=== PATIENT | male | born 1970 | race African-American/Black ===

== ENCOUNTER 2021-07-02 05:13 | Emergency (ER) | payer OTHER ==
--- OUTSIDE RECORDS SUMMARY | 2021-07-02 05:16 | XMS REPORT | Continuity of Care Document ---
:1970 Author Organization [facility] t Address [address] [place] [address] Care Team Providers Name Role Phone RODRIGO Primary Care Physician Unavailable RADIOLOGY Attending Clinician Unavailable Radiology Attending Clinician Unavailable Doctor Unassigned, Name Attending Clinician Unavailable DAMIAN, Jayro Attending Clinician Unavailable Therapy, Covid Infusion Attending Clinician Unavailable Damian MARTINEZ, Jayro Attending Clinician CAROLINA SMITH Admitting Clinician Unavailable Payers Payer Name Policy Type Policy Number Effective Date Expiration Date S kayden SPEAR II [id number] 2020 00:00:00 Problems Condition Condition Condition Status Onset Resolution Last Treating Co mments Source Name Details Category Date Date Treatment Clinician Date Peripheral Problem Active 2021-04-07 M emoria nerve 01:59:47 l disease [place] (disorder) Peripheral nerve disease (disorder) [facility] Ast[facility] Problem Active 2021-04-07 Memor ia (disorder) 01:59:47 l Asthma Alex (disorder) Active Problem 04/07/2021 [facility] Hypertensi Problem Active 2021-04-07 M emoria ve 01:59:47 l disorder, Alex systemic Hypertensi arterial ve (disorder) disorder, systemic arterial (disorder) Active Problem 04/07/2021 [facility] Lumbar Problem Active 2021-04-07 Memor ia radiculopa 01:59:47 l thy Lumbar [place] (disorder) radiculopa thy (disorder) Active Problem 04/07/2021 [facility] Allergies, Adverse Reactions, Alerts Allergy Allergy Status Severity Reaction(s) Onset Inactive Treating Comm ents Source Name Type Date Date Clinician NEBIVOLO DRUG Active Rash 2020-03 Univers L INGREDI 0-21 ity of 00:00: [place] 00 [facility] Nebivolo Propensi Active Rash 2020-03 Univer s l ty to 0-21 ity of adverse 00:00: [place] reaction 00 Medical s Branch NO KNOWN Drug Active Univers ALLERGIE Class ity of S [facility] Bystolic Bystolic Active Memori a joaquina Johnson Social History Social Habit Start Date Stop Date Quantity Comments Source Exposure to Not sure [facility] SARS-CoV-2 (event) Medica l Branch Social History 2021-02-28 2021-02-28 [facility] 15:04:04 15:04:04 Sex Assigned At [birth year] [facility] 00:00:00 00:00:00 Medical [place] Smoking Status Start Date Stop Date Source Unknown if ever smoked [facility] Medications Ordered Filled Start Stop Current Ordering Indication Dosage Frequency Signature Comments Components Source Medication Medication Date Date Medication? Clinician (SIG) Name Name jerichoiptylleanna Yes 10 mg = 1 M emoria ne 10 mg 1-07 tab, PO, l oral tablet 17:39: Bedtime, # Alex 00 30 tab, 1 Refill(s), Pharmacy: [facility], 187.96, cm, 04/04/21 10:39:00 DIRECTOR COMPLIANCE, Height, 180.909, kg, 04/04/21 10:39:00 DIRECTOR COMPLIANCE, Weight duloxetine 2020-03 Yes 30 mg = 1 Me moria 30 MG 2-03 cap, PO, l Enteric 15:34: Daily, # Octavio n Coated 00 30 cap, 3 Capsule Refill(s), [Cymbalta] Pharmacy: [facility], 185.42, cm, 02/28/21 9:20:00 DIRECTOR COMPLIANCE, Height, 176.818, kg, 02/28/21 9:20:00 DIRECTOR COMPLIANCE, Weight losartan 2020-03 Yes 100 mg = 1 Mem oria 100 mg oral 2-03 tab, PO, l tablet 15:29: Daily, # [place] 00 90 tab, 3 Refill(s) amLODIPine 2020-03 Yes 10 mg = 1 Me moria 10 mg oral 2-03 tab, PO, l tablet 15:28: Daily, # Alex 00 90 tab, 1 Refill(s) casirivimab 2020-03- No [id number] 1200mg 1,200 mg, [facility] -imdevimab 01-16 Subcutaneo it y of (REGEN-COV 23:15: 21:30 us, ONCE, [place] (EUA)) 00 :00 1 dose, On Medical injection [place] 1,200 mg 01/16/21 at 1815, Routine Vital Signs Vital Name Observation Time Observation Value Comments Source Systolic blood 2021-01-16 22:15:00 141 mm[Hg] Univer sity of pressure [facility] Diastolic blood 2021-01-16 22:15:00 82 mm[Hg] [facility] 2021-01-16 22:15:00 77 /min [facility] Body temperature 2021-01-16 22:15:00 36.44 Catina [facility] Respiratory rate 2021-01-16 22:15:00 20 /min [facility] Oxygen saturation in 2021-01-16 22:15:00 94 /min [facility] Arterial blood by [facility] Pulse oximetry [place] Body height 2021-01-16 21:35:00 180.3 cm [facility] Body weight 2021-01-16 21:35:00 172.367 kg [facility] BMI 2021-01-16 21:35:00 53.00 kg/m2 [facility] Systolic (mm Hg) 2021-04-04 16:39:00 Nathan riajoaquina [place] Diastolic (mm Hg) 2021-04-04 16:39:00 [facility] orial Alex Heart Rate 2021-04-04 16:39:00 [facility] Respitory Rate 2021-04-04 16:39:00 Connieori al Alex Height 2021-04-04 16:39:00 187.96 cm [facility] Weight 2021-04-04 16:39:00 [facility] BMI Calculated 2021-04-04 16:39:00 Memori al Alex Systolic (mm Hg) 2021-02-28 15:00:00 Nathan rial [place] Diastolic (mm Hg) 2021-02-28 15:00:00 Connie Johnson Heart Rate 2021-02-28 15:00:00 William Johnson Respitory Rate 2021-02-28 15:00:00 Nusrat Salmonann Height 2021-02-28 15:00:00 185.42 cm William Johnson Weight 2021-02-28 15:00:00 William Johnson BMI Calculated 2021-02-28 15:00:00 Nusrat Roman Procedures Procedure Date / Time Performed Performing Clinician Sourc e XR LUMBAR SPINE 5 VW 2021-02-28 18:36:07 Slick Smith Un [facility] ASSIGNMENT OF BENEFITS 2021-02-28 18:08:25 Doctor Unassigned, No [facility] [id number] CONSENT 2021-01-16 05:01:00 Doctor Unassigned, No [facility] Cholecystectomy<sup>1< William Johnson /sup> Encounters Start End Encounter Admission Attending Care Care Encounter Source Date/Time Date/Time Type Type Clinicians Facility Department ID 2021-05-09 2021-05-09 Outpatient [facility] [id number] Memoria 10:30:00 10:30:00 02 joaquina Alex 2021-04-18 2021-04-18 Outpatient R RADIOLOGY [facility] [id number] Univers 16:58:02 23:59:00 ity [facility] 2021-04-18 2021-04-18 Hospital Radiology [facility] [id number] Univers 16:58:02 23:59:00 Encounter Y HEALTH [id number] [id number] [id number] [facility] 804 Branch 2021-04-18 2021-04-18 Outpatient R RADIOLOGY [facility] [id number] Univers 00:00:00 00:00:00 [id number] ity of [facility] 2021-04-04 2021-04-05 Outpatient nullFlavo MNA [id number] Memoria 16:45:00 05:59:59 r Neurology 01 l Carrillo Johnson 2021-02-28 2021-03-01 Outpatient nullFlavo MNA [id number] Memoria 15:30:00 05:59:59 r Neurology 00 l Carrillo Johnson 2021-02-28 2021-02-28 Outpatient R RADIOLOGY [facility] [id number] Univers 12:09:37 23:59:00 ity of [facility] 2021-02-28 2021-02-28 Hospital Radiology [facility] [id number] Univers 12:09:37 23:59:00 Encounter MARINA [id number] [id number] [id number] [facility] 807 Branch 2021-02-28 2021-02-28 Outpatient R RADIOLOGY [facility] [id number] Univers 13:00:00 13:00:00 [id number] ity [facility] 2021-02-28 2021-02-28 Orders Doctor EWA [id number] Univers 00:00:00 00:00:00 Only Unassigned, DEANDRA [id number] ity of [place] [facility] [id number] Leonardo as [id number] [facility] 009 Branch 2021-01-16 2021-01-16 Outpatient R DAMIAN [facility] [id number] Univers 16:00:00 16:00:00 YURI donahue [facility] 2021-01-16 2021-01-16 Nurse Therapy, Adc Covid Infusion [facility] [id number] Univers 14:14:57 15:14:57 Visit Yuri Salgado [id number] ity [facility] [id number] [id number] [facility] 053 Branch 2021-01-16 2021-01-16 Orders Doctor EWA [id number] Univers 00:00:00 00:00:00 Only Unassigned, DEANDRA [id number] ity of [place] [facility] [id number] Leonardo as [id number] [facility] 009 Branch Results This patient has no known results.
[2021-07-02 05:58] LABS: Absolute Lymphocytes (CBC) 2.5 K/uL (0.7-4.9); Hematocrit 38.9 % (39.6-49.0); Lymphocytes % 29.5 % (15.3-44.8); MPV 8.8 fL (7.6-11.3); RBC Red Blood Cell Count 4.61 M/uL (4.33-5.43)
[2021-07-02] MEDS ORDERED: NA CHLORIDE 0.9% 1,000 ML ONE (05:58)
[2021-07-02] MEDS ORDERED: KETOROLAC 30 MG/ML INJ ONE (05:58)
[2021-07-02 06:14] LABS: Albumin 3.2 g/dL (3.4-5.0); Bilirubin Direct 0.1 mg/dL (0-0.2); Bilirubin Total 0.3 mg/dL (0.2-1.0); Potassium 3.7 mmol/L (3.5-5.1); Protein, Total 7.2 g/dL (6.4-8.2)
[2021-07-02 07:28] LABS: Urine Blood Trace-intact (Negative); Urine Glucose Negative (Negative); Urine Protein Negative (Negative); Urine Specific Gravity 1.015 (1.005-1.030)
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
[2021-07-02 19:22] VITALS: TEMP 98.7
[2021-07-02 19:24] VITALS: O2SAT 95
[2021-07-02 19:26] VITALS: BP 125/93
== END 2021-07-02 07:54 | disposition home or self-care (01) ==
LOC: ER 05:13
DX: M54.50 Low back pain, unspecified (principal); R10.30 Lower abdominal pain, unspecified; V49.40XA Driver injured in collision with unspecified motor vehicles in traffic accident, initial encounter; I10 Essential (primary) hypertension
CPT/HCPCS: 85025; 80048; 36415; 86900; 86850; 86901; 80076; 81003; 83690; 70450; 72125; 71260; 74177; Q9967; J7030

== ENCOUNTER 2022-02-23 04:41 | Emergency (ER) | payer OTHER ==
--- OUTSIDE RECORDS SUMMARY | 2022-02-23 04:45 | XMS REPORT | Continuity of Care Document ---
:1970 Author Organization [facility] t Address [address] [place] [address] Care Team Providers Name Role Phone JARON WALLACE Primary Care Physician Unavailable Juli Smith Attending Clinician RADIOLOGY Attending Clinician Unavailable Radiology Attending Clinician Unavailable Doctor Unassigned, [place] Attending Clinician Unavailable YURI SALGADO Attending Clinician Unavailable Therapy, [facility] Covid Infusion Attending Clinician Unavailable Yuri Salgado MD Attending Clinician JULI SMITH Admitting Clinician Unavailable Payers Payer Name Policy Type Policy Number Effective Date Expiration Date Martha SPEAR II [id number] 2020 00:00:00 Problems Condition Condition Condition Status Onset Resolution Last Treating Co mments Source Name Details Category Date Date Treatment Clinician Date Asthma Asthma Problem Active 2022-01-19 Mem oria (disorder) (disorder) 03:53:56 l Active Alex Problem 01/19/2022 [facility] Hypertensi Hypertens Problem Active 2022-01-19 Memoria ve esme 03:53:56 l disorder, disorder, Herm kirill systemic systemic arterial arterial (disorder) (disorder) Active Problem 01/19/2022 [facility] Lumbar Lumbar Problem Active 2022-01-19 Nathan karla radiculopa radiculopa 03:53:56 l thy thy [place] (disorder) (disorder) Active Problem 01/19/2022 [facility] Peripheral Periphera Problem Active 2022-01-19 Memoria nerve l nerve 03:53:56 l disease disease Alex (disorder) (disorder) Active Problem 01/19/2022 [facility] Allergies, Adverse Reactions, Alerts Allergy Allergy Status Severity Reaction(s) Onset Inactive Treating Comm ents Source Name Type Date Date Clinician DENISE DRUG Active Rash 2020-03 Univers L INGREDI 0-21 ity of 00:00: [place] 00 [facility] Nebivargentina Propensi Active Rash 2020-03 Univer s l ty to 0-21 ity of adverse 00:00: [place] reaction 00 [facility] [place] NO KNOWN Drug Active Univers ALLERGIE Class ity of S [facility] Bystolic Bystolic Active Memjoshua Johnson Social History Social Habit Start Date Stop Date Quantity Comments Source Exposure to Not sure [facility] SARS-CoV-2 (event) [facility]ica [facility] [place] Social History 2021-02-28 2021-02-28 William doss 15:04:04 15:04:04 Sex Assigned At [birth year] [facility] 00:00:00 00:00:00 [facility] Smoking Status Start Date Stop Date Source Unknown if ever smoked [facility] Tobacco smoking status [facility] Medications Ordered Filled Start Stop Current Ordering Indication Dosage Frequency Signature Comments Components Source Medication Medication Date Date Medication? Clinician (SIG) Name Name Trileptal 2021-03 Yes 150 mg = 1 Me moria 150 mg oral 0-21 tab, PO, l tablet 15:40: Bedtime, # Stella nn 00 30 tab, 3 Refill(s), Pharmacy: [facility], 157.48, cm, 01/16/22 10:11:00 CDT, Height, 182.273, kg, 05/09/21 10:19:00 LASERIST, Weight amitriptyli 2021-03 Yes = 2 tab, Me moria ne 10 mg 0-14 PO, l oral tablet 23:29: Bedtime, # [place] 00 60 tab, 2 Refill(s), Pharmacy: [facility], 187.96, cm, 05/09/21 10:19:00 LASERIST, Height, 182.273, kg, 05/09/21 10:19:00 LASERIST, Weight amitriptyli Yes 20 mg = 2 M emoria ne 10 mg 2-11 tab, PO, l oral tablet 16:52: Bedtime, # [place] 00 60 tab, 3 Refill(s), Pharmacy: [facility], 187.96, cm, 05/09/21 10:19:00 LASERIST, Height, 182.273, kg, 05/09/21 10:19:00 LASERIST, Weight amitriptyli 0 Yes 10 mg = 1 M emoria ne 10 mg 1-07 tab, PO, l oral tablet 17:39: Bedtime, # [place] 00 30 tab, 1 Refill(s), Pharmacy: [facility], 187.96, cm, 04/04/21 10:39:00 LASERIST, Height, 180.909, kg, 04/04/21 10:39:00 LASERIST, Weight amitriptyli 0 Yes 10 mg = 1 M emoria ne 10 mg 1-07 tab, PO, l oral tablet 17:39: Bedtime, # [place] 00 30 tab, 1 Refill(s), Pharmacy: [facility], 187.96, cm, 04/04/21 10:39:00 LASERIST, Height, 180.909, kg, 04/04/21 10:39:00 LASERIST, Weight duloxetine 2020-03 Yes 30 mg = 1 Me moria 30 MG 2-03 cap, PO, l Enteric 15:34: Daily, # Octavio n [place] 00 30 cap, 3 Capsule Refill(s), [Cymbalta] Pharmacy: [facility], 185.42, cm, 02/28/21 9:20:00 LASERIST, Height, 176.818, kg, 02/28/21 9:20:00 LASERIST, Weight duloxetine 2020-03 Yes 30 mg = 1 Me moria 30 MG 2-03 cap, PO, l Enteric 15:34: Daily, # Octavio n [place] 00 30 cap, 3 Capsule Refill(s), [Cymbalta] Pharmacy: [facility], 185.42, cm, 02/28/21 9:20:00 LASERIST, Height, 176.818, kg, 02/28/21 9:20:00 LASERIST, Weight losartan 2020-03 Yes 100 mg = 1 Mem oria 100 mg oral 2-03 tab, PO, l tablet 15:29: Daily, # [place] 00 90 tab, 3 Refill(s) losartan 2020-03 Yes 100 mg = 1 Mem oria 100 mg oral 2-03 tab, PO, l tablet 15:29: Daily, # Alex 00 90 tab, 3 Refill(s) amLODIPine 2020-03 Yes 10 mg = 1 Me moria 10 mg oral 2-03 tab, PO, l tablet 15:28: Daily, # [place] 00 90 tab, 1 Refill(s) amLODIPine 2020-03 Yes 10 mg = 1 Me moria 10 mg oral 2-03 tab, PO, l tablet 15:28: Daily, # [place] 00 90 tab, 1 Refill(s) casirivimab 2020-03- No [id number] 1200mg 1,200 mg, [facility] -imdevimab 01-16 Subcutaneo it y of (REGEN-COV 23:15: 21:30 us, ONCE, [place] (EUA)) 00 :00 1 dose, On Medical injection [facility] 1,200 mg 01/16/21 at 1815, Routine Vital Signs Vital Name Observation Time Observation Value Comments Source Systolic blood 2021-01-16 22:15:00 141 mm[Hg] Univer sit of pressure [facility] Diastolic blood 2021-01-16 22:15:00 82 mm[Hg] [facility] Heart rate 2021-01-16 22:15:00 77 /min [facility] Body temperature 2021-01-16 22:15:00 36.44 Catina [facility] Respiratory rate 2021-01-16 22:15:00 20 /min [facility] Oxygen saturation in 2021-01-16 22:15:00 94 /min [facility] Arterial blood by [facility] Pulse oximetry [place] Body height 2021-01-16 21:35:00 180.3 cm [facility] Body weight 2021-01-16 21:35:00 172.367 kg [facility] BMI 2021-01-16 21:35:00 53.00 kg/m2 [facility] Systolic (mm Hg) 2022-01-16 14:55:00 Nathan rial Alex Diastolic (mm Hg) 2022-01-16 14:55:00 Mem orial Alex Heart Rate 2022-01-16 14:55:00 [facility] [place] Height 2022-01-16 14:55:00 5 [ft_i] Memorial Alex Systolic (mm Hg) 2021-05-09 16:19:00 Nathan rial Alex Diastolic (mm Hg) 2021-05-09 16:19:00 Mem orial [place] Heart Rate 2021-05-09 16:19:00 Memorial Alex Respitory Rate 2021-05-09 16:19:00 Memori al Alex Height 2021-05-09 16:19:00 187.96 cm [facility] [place] Weight 2021-05-09 16:19:00 [facility] [place] BMI Calculated 2021-05-09 16:19:00 Memori al [place] Systolic (mm Hg) 2021-04-04 16:39:00 Nathan rial Alex Diastolic (mm Hg) 2021-04-04 16:39:00 Mem orial [place] Heart Rate 2021-04-04 16:39:00 Memorial Alex Respitory Rate 2021-04-04 16:39:00 Memori al Alex Height 2021-04-04 16:39:00 187.96 cm [facility] [place] Weight 2021-04-04 16:39:00 Memorial Alex BMI Calculated 2021-04-04 16:39:00 Memori al [place] Systolic (mm Hg) 2021-02-28 15:00:00 Nathan rial Alex Diastolic (mm Hg) 2021-02-28 15:00:00 Mem orial [place] Heart Rate 2021-02-28 15:00:00 [facility] [place] Respitory Rate 2021-02-28 15:00:00 Memori al [place] Height 2021-02-28 15:00:00 185.42 cm Memorial Alex Weight 2021-02-28 15:00:00 [facility] [place] BMI Calculated 2021-02-28 15:00:00 Memori al [place] Procedures Procedure Date / Time Performed Performing Clinician Sourc e XR LUMBAR SPINE 5 VW 2021-02-28 18:36:07 Juli Smith [facility] ASSIGNMENT OF BENEFITS 2021-02-28 18:08:25 Doctor Unassigned, No [facility] [id number] CONSENT 2021-01-16 05:01:00 Doctor Unassigned, No [facility] Cholecystectomy<sup>1< William Johnson /sup> Encounters Start End Encounter Admission Attending Care Care Encounter Source Date/Time Date/Time Type Type Clinicians Facility Department ID 2022-05-01 2022-05-01 Outpatient MHIE MHIE [id number] Memoria 09:45:00 09:45:00 05 joaquina Johnson 2022-01-16 2022-01-17 Outpatient nullFlavo MNA [id number] Memoria 15:00:00 04:59:59 r Neurology 04 joaquina Beckettann 2022-01-16 2022-01-16 Outpatient Karo MHMISCHER MHMISCHER [id number] 10:00:00 23:59:59 Juli 04 Elmo 2022-01-16 2022-01-16 Outpatient MHIE MHIE [id number] Memoria 10:00:00 10:00:00 04 joaquina [place] 2021-08-08 2021-08-08 Ambulatory nullFlavo MNA [id number] Memoria 14:00:00 14:00:00 Pre-Reg r Neurology 03 joaquina Sawyer Alex 2021-08-08 2021-08-08 Outpatient MHIE MHIE [id number] Memoria 09:00:00 09:00:00 03 joaquina [place]ett[place] 2021-08-08 2021-08-08 Outpatient ALEX SmithMISCHER MHMISCHER [id number] 09:00:00 09:00:00 Juli 03 Elmo 2021-05-09 2021-05-10 Outpatient nullFlavo MNA [id number] Memoria 16:30:00 05:59:59 r Neurology 02 joaquina Vizcaino Alex 2021-05-09 2021-05-09 Outpatient Karo MHMISCHER MHMISCHER [id number] 10:30:00 23:59:59 Juli 02 Elmo 2021-05-09 2021-05-09 Outpatient MHIE MHIE [id number] Memoria 10:30:00 10:30:00 02 joaquina Johnson 2021-05-09 2021-05-09 Outpatient MHIE MHIE [id number] Memoria 10:30:00 10:30:00 02 joaquina Johnson 2021-04-18 2021-04-18 Outpatient R RADIOLOGY [facility] [id number] Univers 16:58:02 23:59:00 ity of [facility] 2021-04-18 2021-04-18 [facility] Radiology UNIVERSIT [id number] [id number] Univers 16:58:02 23:59:00 Encounter Y HEALTH [id number] ity of [id number] [id number] [facility] [address] [place] 2021-04-04 2021-04-05 Outpatient nullFlavo MNA [id number] Memoria 16:45:00 05:59:59 r Neurology 01 joaquina Johnson 2021-04-04 2021-04-05 Outpatient nullFlavo MNA [id number] Memoria 16:45:00 05:59:59 r Neurology 01 joaquina Johnson 2021-04-04 2021-04-04 Outpatient ALEX SmithMISCHER MHMISCHER [id number] 10:45:00 23:59:59 Juli 01 [place] 2021-04-04 2021-04-04 Outpatient MHIE MHIE [id number] Memoria 10:45:00 10:45:00 01 joaquina Johnson 2021-02-28 2021-03-01 Outpatient nullFlavo MNA [id number] Memoria 15:30:00 05:59:59 r Neurology 00 l Carrillo Johnson 2021-02-28 2021-03-01 Outpatient nullFlavo MNA [id number] Memoria 15:30:00 05:59:59 r Neurology 00 l Carrillo Johnson 2021-02-28 2021-02-28 Outpatient ALEX SmithMISCHER MHMISCHER [id number] 09:30:00 23:59:59 Juli 00 [place] 2021-02-28 2021-02-28 Outpatient R RADIOLOGY [facility] [id number] Univers 12:09:37 23:59:00 ity of [facility] 2021-02-28 2021-02-28 [facility] Radiology [facility] 1.2.840.114 [id number] Univers 12:09:37 23:59:00 Encounter [place] [id number] ity [facility] 4.2.7.2.686 [place] [id number] [facility] [address] 2021-02-28 2021-02-28 Outpatient MHIE MHIE [id number] Memoria 09:30:00 09:30:00 00 joaquina Johnson 2021-02-28 2021-02-28 Orders Doctor EWA 1.2.840.114 [id number] Univers 00:00:00 00:00:00 Only Unassigned, DEANDRA [id number] ity of [place] [facility] 4.2.7.2.686 Leonardo as [id number] [facility] [address] [place] 2021-01-16 2021-01-16 Outpatient Olamide SALGADO [facility] [id number] Univers 16:00:00 16:00:00 YURI itelisha [facility] 2021-01-16 2021-01-16 Nurse Therapy, Adc Covid Infusion [facility] 1.2.840.114 [id number] Univers 14:14:57 15:14:57 Visit Yuri Salgado [id number] ity [facility] [id number] [facility] [id number] [facility] [address] 2021-01-16 2021-01-16 Orders Doctor EWA [id number] [id number] Univers 00:00:00 00:00:00 Only Unassigned, DEANDRA [id number] ity of [place] [facility] [id number] Leon[place] as [id number] [address] Results Test Description Test Time Test Comments Results Result Comments Source CHEM PANEL 2021-05-10 14:26:00 Test Item Value Reference Range Interpretation Comme nts eGFR (test code = eGFR ) 89 [facility] [id number] 14:26:00 Test Item Value Reference Range Interpretation Comments B/C Ratio (test code = B/C NOT APPLICABLE 09-17 Ratio) [facility] [place] [id number] 14:26:00 Test Item Value Reference Range Interpretation Comments Sodium Lvl (test code = Sodium Lvl) 140 135-146 [facility] [id number] 14:26:00 Test Item Value Reference Range Interpretation Comments Potassium Lvl (test code = Potassium 4.3 3.5-5.3 Lvl) [place] [id number] 14:26:00 Test Item Value Reference Range Interpretation Comments Chloride Lvl (test code = Chloride Lvl) 104 98-110 [place] 804432-02-12 14:26:00 Test Item Value Reference Range Interpretation Comments CO2 (test code = CO2) 29 20-32 [place] [id number] 14:26:00 Test Item Value Reference Range Interpretation Comments Calcium Lvl (test code = Calcium Lvl) 9.2 8.6-10.3 [place] [id number] 14:26:00 Test Item Value Reference Range Interpretation Comments Total Protein (test code = Total 6.8 6.1-8.1 Protein) [facility]2022-02-12 14:26:00 Test Item Value Reference Range Interpretation Comments Albumin Lvl (test code = Albumin Lvl) 3.9 3.6-5.1 [place] 804432-02-12 14:26:00 Test Item Value Reference Range Interpretation Comments Globulin (test code = Globulin) 2.9 1.9-3.7 [place] 804432-02-12 14:26:00 Test Item Value Reference Range Interpretation Comments A/G Ratio (test code = A/G Ratio) 1.3 1.0-2.5 [facility]2022-02-12 14:26:00 Test Item Value Reference Range Interpretation Comments Bili Total (test code = Bili Total) 0.3 0.2-1.2 [facility]2022-02-12 14:26:00 Test Item Value Reference Range Interpretation Comments Alk Phos (test code = Alk Phos) 57 36-130 [place] 804432-02-12 14:26:00 Test Item Value Reference Range Interpretation Comments ASPARTATE TRANSAMINASE (test code = 14 10-40 ASPARTATE TRANSAMINASE) [place] 804432-02-12 14:26:00 Test Item Value Reference Range Interpretation Comments ALANINE AMINOTRANSFERASE (test code = 14 9-46 ALANINE AMINOTRANSFERASE) [id number] 14:26:00 Test Item Value Reference Range Interpretation Comments WBC X 10x3 (test code = WBC X 10x3) 7.4 3.8-10.8 [place] [address]-02-12 14:26:00 Test Item Value Reference Range Interpretation Comments RBC X 10x6 (test code = RBC X 10x6) 4.64 4.20-5.80 [place] [address]-02-12 14:26:00 Test Item Value Reference Range Interpretation Comments Hgb (test code = Hgb) 13.0 13.2-17.1 [place] 012712-02-12 14:26:00 Test Item Value Reference Range Interpretation Comments Hct (test code = Hct) 39.1 38.5-50.0 [place] [address]-02-12 14:26:00 Test Item Value Reference Range Interpretation Comments MCV (test code = MCV) 84.3 80.0-100.0 [place] [address]-02-12 14:26:00 Test Item Value Reference Range Interpretation Comments MCH (test code = MCH) 28.0 pg 27.0-33.0 [place] 012712-02-12 14:26:00 Test Item Value Reference Range Interpretation Comments MCHC (test code = MCHC) 33.2 32.0-36.0 [facility] [place] [facility] [id number] 14:26:00 Test Item Value Reference Range Interpretation Comments RDW (test code = RDW) 13.8 11.0-15.0 [facility] [place] [facility] HospitalMhjbdfzMZWALEUTWK0894-32-39 14:26:00 Test Item Value Reference Range Interpretation Comments Platelet (test code = Platelet) 280 140-400 [place] 012712-02-12 14:26:00 Test Item Value Reference Range Interpretation Comments MPV (test code = MPV) 10.8 7.5-12.5 [place] [address]-02-12 14:26:00 Test Item Value Reference Range Interpretation Comments Neutrophils # (test code = Neutrophils 3049 9093-4171 #) [place] 012712-02-12 14:26:00 Test Item Value Reference Range Interpretation Comments Lymphocytes # (test code = Lymphocytes 3360 850-3900 #) [facility] [place] [facility] HospitalClvwjowFBRNQOQQAA1175-09-58 14:26:00 Test Item Value Reference Range Interpretation Comments Monocytes # (test code = Monocytes #) 651 200-950 [facility]ffEHEHRVHIJB6990-24-10 14:26:00 Test Item Value Reference Range Interpretation Comments Eosinophils # (test code = Eosinophils 289 15-500 #) [facility]LpbbjlkIAJZZXBNFJ6785-82-75 14:26:00 Test Item Value Reference Range Interpretation Comments Basophils # (test code 52 See_Comment [Aut omated message] The = Basophils #) system which generated this result tra nsmitted reference range : <=200. The reference r la was not used to int erpret this result as normal/abnormal . [facility] [place] [facility] HospitalRzkxmeuMXJVXAEEDY4287-30-52 14:26:00 Test Item Value Reference Range Interpretation Comments Segs (test code = Segs) 41.2 [facility] [place] [facility] HospitalVuqllliVNLPXFCZMF0264-71-02 14:26:00 Test Item Value Reference Range Interpretation Comments Lymphocytes (test code = Lymphocytes) 45.4 [facility] [place] [facility] HospitalUkgbjxtARNMEKOWQO8035-22-50 14:26:00 Test Item Value Reference Range Interpretation Comments Monocytes (test code = Monocytes) 8.8 [facility] [place] [facility] HospitalJpsvlefLAGLZMQGZF7155-17-72 14:26:00 Test Item Value Reference Range Interpretation Comments Eosinophils (test code = Eosinophils) 3.9 [facility] [place] [facility] HospitalKjzhbzuJYUVYJHLGZ7295-44-96 14:26:00 Test Item Value Reference Range Interpretation Comments Basophils (test code = Basophils) 0.7 [facility] [place] [facility] HospitalIlpvrfdWAGROAOTFD9211-56-75 14:26:00 Test Item Value Reference Range Interpretation Comments Sed Rate (test code = Sed Rate) 17 [facility] [id number] 14:26:00 Test Item Value Reference Range Interpretation Comments Hgb A1C (test code = Hgb A1C) 6.2 [facility] [id number] 14:26:00 Test Item Value Reference Range Interpretation Comments Vitamin B12 Lvl (test code = Vitamin 109 194-7852 B12 Lvl) [facility] [id number] 14:26:00 Test Item Value Reference Range Interpretation Comments Glucose Lvl (test code = Glucose Lvl) 99 65-99 [facility]2022-02-12 14:26:00 Test Item Value Reference Range Interpretation Comments BUN (test code = BUN) 13 7-25 [facility]2022-02-12 14:26:00 Test Item Value Reference Range Interpretation Comments Creatinine Lvl (test code = Creatinine 1.12 0.60-1.35 Lvl) [facility] [id number] 14:26:00 Test Item Value Reference Range Interpretation Comments eGFR NON-AFR. [place]IZ[place] (test code = 77 eGFR NON-AFR. [place]IZ[place] OF [place]) [facility]
[2022-02-23] MEDS ORDERED: KETOROLAC 30 MG/ML INJ ONE (05:23)
[2022-02-23] MEDS ORDERED: CYCLOBENZAPRINE 10 MG TAB ONE (05:23)
[2022-02-23] MEDS ORDERED: ACETAMINOPHEN 500 MG TAB ONE (05:23)
--- NOTE | 2022-02-23 06:29 | ER ---
Nurse's Notes [facility] Name: Butch Unger Age: 51 yrs Sex: Male : 1970 Arrival Date: 02/23/2022 Time: 04:47 Bed 7 Private MD: Diagnosis: Low back pain Presentation: 02/23 04:57 Chief complaint: Patient states: I have extreme back pain for the last couple days now. aa9 Coronavirus screen: Vaccine status: Patient reports receiving the 2nd dose of the covid vaccine. Ebola Screen: No symptoms or risks identified at this time. Initial Sepsis Screen: Does the patient meet any 2 criteria? No. Patient's initial sepsis screen is negative. Does the patient have a suspected source of infection? No. Patient's initial sepsis screen is negative. Risk Assessment: Do you want to hurt yourself or someone else? Patient reports no desire to harm self or others. Onset of symptoms was February 23, 2022. 04:57 Method Of Arrival: Ambulatory aa9 04:57 Acuity: NILTON 4 aa9 Triage Assessment: 05:00 General: Appears uncomfortable, obese, Behavior is calm, cooperative, appropriate for aa9 age. Pain: Complains of pain in back Pain currently is 8 out of 10 on a pain scale. Neuro: Level of Consciousness is awake, alert, obeys commands, Oriented to person, place, time, situation. Cardiovascular: Patient's skin is warm and dry. Respiratory: Airway is patent Respiratory effort is even, unlabored. GI: No signs and/or symptoms were reported involving the gastrointestinal system. : No signs and/or symptoms were reported regarding the genitourinary system. Derm: Skin is intact, is healthy with good turgor. Musculoskeletal: Reports pain in back. Historical: - Allergies: 04:58 Amitriptyline; aa9 04:58 Bystolic; aa9 - PMHx: 04:58 Hypertension; aa9 - PSHx: 04:58 Cholecystectomy; aa9 - Immunization history:: Client reports receiving the 2nd dose of the Covid vaccine. - Social history:: Smoking status: Patient denies any tobacco usage or history of. - Family history:: not pertinent. Screenin:01 Abuse screen: Denies threats or abuse. Denies injuries from another. Nutritional aa9 screening: No deficits noted. Tuberculosis screening: No symptoms or risk factors identified. Fall Risk None identified. Assessment: 05:00 General: Appears in no apparent distress. comfortable, Behavior is calm, cooperative, jb4 appropriate for age, Pt is standing leaning against the wall, is diaphoretic, denies SOB, dizziness, or Chest Pain. Pt sat in bed and connected to heart monitor, HR decreased from 120 to 100, diaphoresis decreased. Provider notified of pt condition.. Pain: Complains of pain in right low back Pain radiates to right subscapular area Pain currently is 8 out of 10 on a pain scale. Neuro: Level of Consciousness is awake, alert, obeys commands, Oriented to person, place, time, situation. Cardiovascular: Patient's skin is warm and dry. Respiratory: Airway is patent Respiratory effort is even, unlabored, Respiratory pattern is regular, symmetrical. GI: No signs and/or symptoms were reported involving the gastrointestinal system. : No signs and/or symptoms were reported regarding the genitourinary system. EENT: No signs and/or symptoms were reported regarding the EENT system. Derm: Skin is intact, Skin is diaphoretic, Skin is normal, Skin temperature is warm. Musculoskeletal: Circulation, motion, and sensation intact. Range of motion: intact in all extremities. 06:02 Reassessment: Patient appears in no apparent distress at this time. Patient and/or jb4 family updated on plan of care and expected duration. Pain level reassessed. Patient is alert, oriented x 3, equal unlabored respirations, skin warm/dry/pink. 06:35 Reassessment: Patient appears in no apparent distress at this time. Patient and/or aa9 family updated on plan of care and expected duration. Pain level reassessed. Patient is alert, oriented x 3, equal unlabored respirations, skin warm/dry/pink. pts understand discharge instructions, pt ambulated out or ER. Vital Signs: 04:57 BP 142 / 104; Pulse 96; Resp 20 S; Temp 98.1(O); Pulse Ox 97% on R/A; Weight 181.44 kg aa9 (R); Height 6 ft. 1 in. (185.42 cm) (R); Pain 8/10; 06:04 BP 126 / 80; Pulse 85; Resp 18; Pulse Ox 98% on R/A; jb4 04:57 Body Mass Index 52.77 (181.44 kg, 185.42 cm) aa9 ED Course: 04:47 Patient arrived in ED. bp1 04:54 Jorge Rehman MD is Attending Physician. rt 04:58 Triage completed. aa9 05:01 Arm band placed on. aa9 05:01 Patient has correct armband on for positive identification. Call light in reach. aa9 05:34 Sergey Lezama, RN is Primary Nurse. jb4 06:35 No provider procedures requiring assistance completed. Patient did not have IV access aa9 during this emergency room visit. Administered Medications: 05:34 Drug: Tylenol 1000 mg Route: PO; jb4 05:35 Drug: Flexeril (cyclobenzaprine) 10 mg Route: PO; jb4 05:35 Drug: Ketorolac 30 mg Route: IM; Site: right deltoid; jb4 Medication: 05:01 VIS not applicable for this client. aa9 Outcome: 06:29 Discharge ordered by MD. rt 06:35 Discharged to home ambulatory. aa9 06:35 Condition: stable 06:35 Discharge instructions given to patient, Instructed on discharge instructions, follow up and referral plans. medication usage, Demonstrated understanding of instructions, follow-up care, medications, Prescriptions given X 1. 06:37 Patient left the ED. aa9 Signatures: Sergey Lezama, RN RN jb4 Carolin Wyatt bp1 Ariadna Beck, RN RN aa9 Jorge Rehman MD MD rt Corrections: (The following items were deleted from the chart) 04:59 04:58 Allergies: No Known Allergies; aa9 aa9
--- NOTE | 2022-02-23 06:30 | EDPHYS ---
Physician Documentation [facility] Name: Butch Unger Age: 51 yrs Sex: Male : 1970 Arrival Date: 02/23/2022 Time: 04:47 Bed 7 Private MD: ED Physician Jorge Rehman HPI: 02/23 05:14 This 51 yrs old Black Male presents to ER via Ambulatory with complaints of Back Pain. rt 05:14 The patient presents with pain that is chronic, with no known mechanism of injury. The rt symptoms are located in the low back. Onset: The symptoms/episode began/occurred gradually. The pain does not radiate. Associated signs and symptoms: Pertinent negatives: incontinence, numbness, urinary retention. Modifying factors: The patient symptoms are alleviated by nothing. Presents to the ED with worsening of his chronic right-sided back pain. This is been present for about 3 days. He states that his medications have not adequately improved the symptoms. He denies other acute complaints at this time. Symptoms are moderate severity, no other aggravating or alleviating factors.. Historical: - Allergies: 04:58 Amitriptyline; aa9 04:58 Bystolic; aa9 - PMHx: 04:58 Hypertension; aa9 - PSHx: 04:58 Cholecystectomy; aa9 - Immunization history:: Client reports receiving the 2nd dose of the Covid vaccine. - Social history:: Smoking status: Patient denies any tobacco usage or history of. - Family history:: not pertinent. ROS: 05:14 Constitutional: Negative for fever, chills, and weight loss, Eyes: Negative for injury, rt pain, redness, and discharge, Cardiovascular: Negative for chest pain, palpitations, and edema, Respiratory: Negative for shortness of breath, cough, wheezing, and pleuritic chest pain, Abdomen/GI: Negative for abdominal pain, nausea, vomiting, diarrhea, and constipation, MS/Extremity: Negative for injury and deformity, Skin: Negative for injury, rash, and discoloration, Neuro: Negative for headache, weakness, numbness, tingling, and seizure, Psych: Negative for depression, anxiety, suicide ideation, homicidal ideation, and hallucinations. 05:14 Back: Positive for pain at rest, pain with movement. Exam: 05:14 Constitutional: This is a well developed, well nourished patient who is awake, alert, rt and in no acute distress. Head/Face: Normocephalic, atraumatic. Chest/axilla: Normal chest wall appearance and motion. Nontender with no deformity. No lesions are appreciated. Cardiovascular: Regular rate and rhythm with a normal S1 and S2. No gallops, murmurs, or rubs. Normal PMI, no JVD. No pulse deficits. Respiratory: Lungs have equal breath sounds bilaterally, clear to auscultation and percussion. No rales, rhonchi or wheezes noted. No increased work of breathing, no retractions or nasal flaring. Abdomen/GI: Soft, non-tender, with normal bowel sounds. No distension or tympany. No guarding or rebound. No evidence of tenderness throughout. Skin: Warm, dry with normal turgor. Normal color with no rashes, no lesions, and no evidence of cellulitis. MS/ Extremity: Pulses equal, no cyanosis. Neurovascular intact. Full, normal range of motion. Neuro: Awake and alert, GCS 15, oriented to person, place, time, and situation. Cranial nerves II-XII grossly intact. Motor strength 5/5 in all extremities. Sensory grossly intact. Cerebellar exam normal. Normal gait. Psych: Awake, alert, with orientation to person, place and time. Behavior, mood, and affect are within normal limits. 05:14 Back: Tenderness to the right paraspinal region, no midline tenderness, no step-offs. Vital Signs: 04:57 BP 142 / 104; Pulse 96; Resp 20 S; Temp 98.1(O); Pulse Ox 97% on R/A; Weight 181.44 kg aa9 (R); Height 6 ft. 1 in. (185.42 cm) (R); Pain 8/10; 06:04 BP 126 / 80; Pulse 85; Resp 18; Pulse Ox 98% on R/A; jb4 04:57 Body Mass Index 52.77 (181.44 kg, 185.42 cm) aa9 MDM: 04:59 Patient medically screened. rt 06:32 Differential diagnosis: Oral abscess, cauda equina syndrome, musculoskeletal pain, rt kidney stone. Data reviewed: vital signs, nurses notes. ED course: Patient presents to the ED with back pain. There is no focal neurologic deficits, no bowel, bladder incontinence to suggest SEA, cauda equina syndrome. Pain is improving with treatment in the ED, stable for outpatient care, return precautions discussed.. Administered Medications: 05:34 Drug: Tylenol 1000 mg Route: PO; jb4 05:35 Drug: Flexeril (cyclobenzaprine) 10 mg Route: PO; jb4 05:35 Drug: Ketorolac 30 mg Route: IM; Site: right deltoid; jb4 Disposition Summary: 02/23/22 06:29 Discharge Ordered Location: Home rt Problem: an acute exacerbation rt Symptoms: are unchanged rt Condition: Stable rt Diagnosis - Low back pain rt Followup: rt - With: Private Physician - When: 2 - 3 days - Reason: Discharge Instructions: - Discharge Summary Sheet rt - Acute Back Pain, Adult rt Forms: - Medication Reconciliation Form rt - Thank You Letter rt - Antibiotic Education rt - Prescription Opioid Use rt Prescriptions: - Cyclobenzaprine 10 mg Oral Tablet - take 1 tablet by ORAL route every 8 hours As needed; 15 tablet; Refills: 0, rt Product Selection Permitted Signatures: Sergey Lezama RN RN jb4 Ariadna Beck RN RN aa9 Jorge Rehman MD MD rt Corrections: (The following items were deleted from the chart) 04:59 04:58 Allergies: No Known Allergies; gila aa9
[2022-02-23 06:41] VITALS: TEMP 98.1
[2022-02-23 06:42] VITALS: BP 126/80; O2SAT 98
== END 2022-02-23 06:37 | disposition home or self-care (01) ==
LOC: ER 04:41
DX: M54.50 Low back pain, unspecified (principal); I10 Essential (primary) hypertension; Z88.8 Allergy status to other drugs, medicaments and biological substances
CPT/HCPCS: 96372; 99283